=== PATIENT | female | born 1975 | race Caucasian/White ===

== ENCOUNTER 2019-05-10 05:22 | Emergency (ER) | payer SELFPAY ==
[~2019-05-10] VITALS: Ht 167.6 cm; Wt 95.0 kg
[2019-05-10] MEDS ORDERED: ONDANSETRON HCL 4MG/2ML INJ IV STA (05:44)
[2019-05-10] MEDS ORDERED: MORPHINE SULFATE 4 MG/ML CPJ (NOT FOR IM USE) IV STA (05:44)
[2019-05-10] MEDS ORDERED: SODIUM CHLORIDE 0.9% 1,000 ML IV ONE (05:44)
[2019-05-10 06:03] LABS: BASOPHILS % 0.6 % (0.0-2.0); EOSINOPHILS % 0.5 % (0.0-5.0); HEMATOCRIT. 43.8 % (36.0-48.0); HEMOGLOBIN. 14.8 g/dL (12.0-16.0); LYMPHOCYTES % 17.6 % (20.0-50.0); MEAN CORPUSCULAR HEMOGLOBIN 30.8 pg (28.0-32.0); MEAN PLATELET VOLUME 8.2 fl (7.4-10.4); MONOCYTES % 7.1 % (2.0-8.0); NEUTROPHILS % 74.2 % (40.0-76.0); PLATELET 218 x1000/uL (130-400); RED BLOOD CELL COUNT 4.81 mill/uL (4.2-5.4); RED CELL DISTRIBUTION WIDTH 13.7 % (11.6-14.6)
[2019-05-10 06:11] LABS: CHLORIDE 108 mEq/L (98-107)
[2019-05-10 06:17] LABS: ETHANOL BLOOD < 10 mg/dL
[2019-05-10 06:32] LABS: INR 0.9; PROTHROMBIN TIME 9.8 sec (9.6-11.0)
[2019-05-10] MEDS ORDERED: DIATR MEGLU/DIATRIZOATE SOLN 30ML ONE (06:43)
[2019-05-10 07:04] LABS: HCG SCREEN NEGATIVE
[2019-05-10] MEDS ORDERED: LORAZEPAM 1MG TABLET PO ONE (08:15)
[2019-05-10] MEDS ORDERED: LORAZEPAM 2MG/ML CPJ IV ONE (08:45)
[2019-05-10 09:20] VITALS: BP 135/92
== END 2019-05-10 09:22 | disposition home or self-care (01) ==
LOC: ER 05:22
DX: M54.5 Low back pain (principal); R11.2 Nausea with vomiting, unspecified; J45.909 Unspecified asthma, uncomplicated; K21.9 Gastro-esophageal reflux disease without esophagitis; F12.10 Cannabis abuse, uncomplicated; F17.210 Nicotine dependence, cigarettes, uncomplicated; Z98.890 Other specified postprocedural states; Z88.6 Allergy status to analgesic agent
CPT/HCPCS: 36415; 74176; 76830; 76856; 80053; 80320; 83690; 84703; 85025; 85610; 96361; 96374; 96375; 99284; J2060; J2270; J2405; J7030; Z7610; Q9963; G0480

== ENCOUNTER 2022-04-07 07:08 | Emergency (ER) | payer BC ==
[~2022-04-07] VITALS: Ht 170.2 cm; Wt 87.0 kg
[2022-04-07] MEDS ORDERED: ONDANSETRON HCL 4MG/2ML INJ IV STA (07:11)
[2022-04-07] MEDS ORDERED: LORAZEPAM 1MG TABLET PO ONE (07:15)
[2022-04-07] MEDS ORDERED: SODIUM CHLORIDE 0.9% 1,000 ML IV ONE (07:15)
[2022-04-07] MEDS ORDERED: ACETAMINOPHEN 325MG TABLET PO ONE (08:30)
[2022-04-07 08:35] LABS: BASOPHILS % 0.7 % (0.0-2.0); EOSINOPHILS % 0.1 % (0.0-5.0); HEMATOCRIT. 43.2 % (36.0-48.0); HEMOGLOBIN. 14.3 g/dL (12.0-16.0); LYMPHOCYTES % 10.8 % (20.0-50.0); MEAN CORPUSCULAR HEMOGLOBIN 30.9 pg (28.0-32.0); MEAN CORPUSCULAR VOLUME 93.1 fL (81.0-99.0); MEAN PLATELET VOLUME 8.1 fl (7.4-10.4); MONOCYTES % 5.6 % (2.0-8.0); NEUTROPHILS % 82.8 % (40.0-76.0); PLATELET 251 x1000/uL (130-400); RED BLOOD CELL COUNT 4.64 mill/uL (4.2-5.4); RED CELL DISTRIBUTION WIDTH 13.5 % (11.6-14.6)
[2022-04-07 08:42] LABS: CLARITY URINE CLOUDY (CLEAR); COLOR URINE YELLOW (YELLOW); KETONES URINE 1+ (NEGATIVE); LEUKOCYTE ESTERASE URINE NEGATIVE (NEGATIVE); NITRITE URINE NEGATIVE (NEGATIVE); OCCULT BLOOD URINE TRACE (NEGATIVE); PH URINE 6.5 (4.5-8.0); PROTEIN URINE 1+ (NEGATIVE); SPECIFIC GRAVITY URINE 1.035 (1.005-1.030)
[2022-04-07 08:43] LABS: CHLORIDE 108 mEq/L (98-107)
[2022-04-07 08:51] LABS: ETHANOL BLOOD < 10 mg/dL
[2022-04-07 08:58] LABS: HCG SCREEN NEGATIVE
[2022-04-07 09:04] LABS: *AMPHETAMINES SCREEN URINE NEGATIVE (NEGATIVE); *BARBITURATES SCREEN URINE NEGATIVE (NEGATIVE); *BENZODIAZEPINES SCREEN URINE NEGATIVE (NEGATIVE); *COCAINE SCREEN URINE NEGATIVE (NEGATIVE); METHADONE URINE SCREEN NEGATIVE (NEGATIVE); OPIATES URINE SCREEN NEGATIVE (NEGATIVE); PHENCYCLIDINE URINE SCREEN NEGATIVE (NEGATIVE)
[2022-04-07 09:05] LABS: CANNABINOID URINE SCREEN PRESUMTIVE POSITIVE (NEGATIVE)
[2022-04-07] MEDS ORDERED: MAGNESIUM/ALUMINUM HYDROXIDE/SIMETHICONE 30ML UDC PO STA ×2 (09:09→13:04)
[2022-04-07] MEDS ORDERED: VISCOUS LIDOCAINE 2% 15 ML UDC PO STA ×2 (09:09→13:04)
[2022-04-07] MEDS ORDERED: DICYCLOMINE 10 MG/5 ML ORAL SYR PO STA ×2 (09:09→13:04)
[2022-04-07] MEDS ORDERED: OMEP40CA20 MT (10:48)
[2022-04-07] MEDS ORDERED: ONDA4TAB50 MT (10:48)
[2022-04-07] MEDS ORDERED: HALOPERIDOL LACTATE 5MG/ML VIAL IM ONE (13:15)
[2022-04-07 15:50] VITALS: BP 115/59
== END 2022-04-07 16:16 | disposition home or self-care (01) ==
LOC: ER 07:08
DX: R10.9 Unspecified abdominal pain (principal); Z88.6 Allergy status to analgesic agent
CPT/HCPCS: 36415; 74176; 80053; 80305; 80320; 81003; 81025; 83690; 84703; 85025; 96361; 96372; 96374; 99285; J1630; J2405; J7030; G0480

== ENCOUNTER 2023-04-04 10:20 | Emergency (ER) | payer BC ==
[~2023-04-04] VITALS: Ht 167.6 cm; Wt 90.0 kg
[~2023-04-04 10:20] MED LIST: OMEP40CA20 MT; ONDA4TAB50 MT
[2023-04-04 10:22] VITALS: O2SAT 97
[2023-04-04] MEDS ORDERED: MORPHINE SULFATE 4 MG/ML CPJ (NOT FOR IM USE) IV STA (10:32)
[2023-04-04] MEDS ORDERED: ONDANSETRON HCL 4MG/2ML INJ IV STA (10:32)
[2023-04-04] MEDS ORDERED: SODIUM CHLORIDE 0.9% 1,000 ML IV ONE (10:45)
[2023-04-04] MEDS ORDERED: LORAZEPAM 2MG/ML CPJ IV ONE (11:15)
[2023-04-04 12:12] LABS: BASOPHILS % 0.4 % (0.0-2.0); EOSINOPHILS % 0.2 % (0.0-5.0); HEMATOCRIT. 42.7 % (36.0-48.0); HEMOGLOBIN. 14.2 g/dL (12.0-16.0); MEAN CORPUSCULAR HEMOGLOBIN 30.9 pg (28.0-32.0); MEAN CORPUSCULAR HGB CONC 33.3 g/dL (31.0-37.0); MEAN CORPUSCULAR VOLUME 92.5 fL (81.0-99.0); MONOCYTES % 5.2 % (2.0-8.0); NEUTROPHILS % 82.2 % (40.0-76.0); PLATELET 236 x1000/uL (130-400); RED BLOOD CELL COUNT 4.62 mill/uL (4.2-5.4); RED CELL DISTRIBUTION WIDTH 14.1 % (11.6-14.6); WHITE BLOOD COUNT 13.7 x1000/uL (4.5-11.0)
[2023-04-04] MEDS ORDERED: METOCLOPRAMIDE HCL 10MG/2ML VIAL IV ONE (12:15)
[2023-04-04] MEDS ORDERED: MORPHINE SULFATE 4 MG/ML CPJ (NOT FOR IM USE) IV ONE (12:15)
[2023-04-04 12:22] LABS: CHLORIDE 118 mEq/L (98-107); INDEX HEMOLYSI 4 (1-3); INDEX ICTERIC 1 (1-4); INDEX LIPEMIC 1 (1-3); SODIUM 140 mEq/L (136-145)
[2023-04-04 12:27] LABS: POTASSIUM 4.4 mEq/L (3.5-5.1)
[2023-04-04 12:31] LABS: ALANINE AMINOTRANSFERASE 20 IU/L (13-61); ALBUMIN 3.7 g/dL (3.4-5.0); ASPARTATE AMINOTRANSFERASE 27 IU/L (15-37); BILIRUBIN TOTAL 0.6 mg/dL (0.1-1.0); CALCIUM 8.5 mg/dL (8.5-10.1); CARBON DIOXIDE 21 mEq/L (21-32); CREATININE 0.8 mg/dL (0.6-1.3); GLUCOSE 120 mg/dL (70-105); PROTEIN TOTAL 7.6 g/dL (6.0-8.3); TROPONIN I HIGH SENSITIVITY 6 ng/L (<54); UREA NITROGEN BLOOD 13 mg/dL (7-21)
[2023-04-04 12:38] LABS: HCG SCREEN NEGATIVE
[2023-04-04 13:03] LABS: CLARITY URINE TURBID (CLEAR); COLOR URINE ORANGE (YELLOW); GLUCOSE URINE NEGATIVE (NEGATIVE); KETONES URINE 1+ (NEGATIVE); LEUKOCYTE ESTERASE URINE 1+ (NEGATIVE); NITRITE URINE POSITIVE (NEGATIVE); OCCULT BLOOD URINE 3+ (NEGATIVE); PH URINE 5.5 (4.5-8.0); PROTEIN URINE 2+ (NEGATIVE); SPECIFIC GRAVITY URINE 1.024 (1.005-1.030)
[2023-04-04] MEDS ORDERED: CEFTRIAXONE 1GM PREMIX 50 ML IV ONE (13:15)
[2023-04-04 13:43] LABS: BACTERIA URINE 1+; RBC URINE TNTC /hpf (0-2); SQUAMOUS EPITHELIAL CELL URINE 1+ /lpf (RARE/1+); WBC URINE 0-2 /hpf (0-2)
[2023-04-04] MEDS ORDERED: CEPH500C2 MT (19:09)
[2023-04-04 19:30] VITALS: BP 115/92; PULSE 69; RESP 14; TEMP 98.5
== END 2023-04-04 19:15 | disposition home or self-care (01) ==
LOC: ER 10:29
DX: R10.10 Upper abdominal pain, unspecified (principal); R11.2 Nausea with vomiting, unspecified; F41.9 Anxiety disorder, unspecified; F32.9 Major depressive disorder, single episode, unspecified; K21.9 Gastro-esophageal reflux disease without esophagitis
CPT/HCPCS: 80053; 81003; 84703; 83690; 85025; 84484; 36415; 71045; 74176; 93005; 96361; 96365; 96375; 96376; 99285; J0696; J2060; J2765; J2405; J2270; J7030; Z7610 ×2

== ENCOUNTER 2024-04-11 14:19 | Emergency (ER) | payer BC ==
[~2024-04-11] VITALS: Ht 165.1 cm; Wt 105.0 kg
[~2024-04-11 14:19] MED LIST changes: +CEPH500C2 MT
[2024-04-11 14:22] VITALS: O2SAT 100
[2024-04-11] MEDS: MAGNESIUM/ALUMINUM HYDROXIDE/SIMETHICONE 30ML UDC PO STA (15:14)
[2024-04-11] MEDS: FAMOTIDINE 20MG TABLET PO ONE ×2 (15:14→21:54)
[2024-04-11] MEDS: HYDROCODONE/ACETAMINOPHEN 5/325MG TABLET PO STA (15:17)
[2024-04-11 15:34] LABS: BASOPHILS % 1.3 % (0.0-2.0); EOSINOPHILS % 0.4 % (0.0-5.0); HEMOGLOBIN. 15.2 g/dL (12.0-16.0); LYMPHOCYTES % 21.7 % (20.0-50.0); MEAN CORPUSCULAR HEMOGLOBIN 32.3 pg (28.0-32.0); MEAN CORPUSCULAR HGB CONC 33.7 g/dL (31.0-37.0); MEAN CORPUSCULAR VOLUME 95.7 fL (81.0-99.0); MEAN PLATELET VOLUME 8.1 fl (7.4-10.4); MONOCYTES % 5.6 % (2.0-8.0); PLATELET 299 x1000/uL (130-400); RED CELL DISTRIBUTION WIDTH 14.5 % (11.6-14.6); WHITE BLOOD COUNT 14.8 x1000/uL (4.5-11.0)
[2024-04-11 15:35] LABS: CHLORIDE 108 mEq/L (98-107); POTASSIUM 3.6 mEq/L (3.5-5.1); SODIUM 144 mEq/L (136-145)
[2024-04-11 15:36] LABS: CALCIUM 10.5 mg/dL (8.7-10.4); CARBON DIOXIDE 25 mEq/L (21-32)
[2024-04-11 15:39] LABS: PROTHROMBIN TIME 10.7 sec (9.6-11.0)
[2024-04-11 15:41] LABS: GLUCOSE 118 mg/dL (70-105); UREA NITROGEN BLOOD 11 mg/dL (9-23)
[2024-04-11 15:42] LABS: HCG SCREEN NEGATIVE
[2024-04-11 15:43] LABS: ALANINE AMINOTRANSFERASE 17 IU/L (10-49); ASPARTATE AMINOTRANSFERASE 21 IU/L (<34); BILIRUBIN DIRECT 0.2 mg/dL (<=3.0)
[2024-04-11 15:44] LABS: BILIRUBIN TOTAL 0.5 mg/dL (0.1-1.0); PROTEIN TOTAL 7.6 g/dL (6.0-8.3)
[2024-04-11] MEDS: LORAZEPAM 2MG/ML INJ IV ONE (15:45)
[2024-04-11 15:52] LABS: ETHANOL BLOOD < 10 mg/dL (<10); TROPONIN I HIGH SENSITIVITY < 4 ng/L (3.0-34)
[2024-04-11 17:21] VITALS: TEMP 37.00296
[2024-04-11] MEDS: MORPHINE SULFATE 2 MG/ML INJ (NOT FOR IM USE) IV NR (17:45)
[2024-04-11 18:21] LABS: TROPONIN I HIGH SENSITIVITY < 4 ng/L (3.0-34)
[2024-04-11 19:46] VITALS: BP 145/61; PULSE 78; RESP 20; O2SAT 98
[2024-04-11] MEDS ORDERED: SUCR1TAB MT (20:41)
[2024-04-11] MEDS: ONDANSETRON 4MG ODT PO ONE (21:19)
[2024-04-11] MEDS: MAGNESIUM/ALUMINUM HYDROXIDE/SIMETHICONE 30ML UDC PO ONE (21:54)
[2024-04-11] MEDS: ACETAMINOPHEN 1000MG/100ML 100 ML IV ONE (22:02)
[2024-04-11] MEDS: ONDANSETRON HCL 4MG/2ML INJ IV ONE (22:02)
== END 2024-04-11 23:52 | disposition left against medical advice (07) ==
LOC: ER 14:19 → EDBEDREQ 14:59 → EDBEDREQTM 22:03 → EDBEDREQ 22:03 → EDBEDREQSVC 22:03 → EDBEDREQTM 22:04 → CANBEDREQ 23:28 → ER 23:52
DX: K21.9 Gastro-esophageal reflux disease without esophagitis (principal); F41.9 Anxiety disorder, unspecified; J45.909 Unspecified asthma, uncomplicated; Z88.8 Allergy status to other drugs, medicaments and biological substances; Z79.899 Other long term (current) drug therapy
CPT/HCPCS: 80076; 80048; 80320; 84703; 83880; 83690; 85025; 85610; 84484; 36415; 71045; 74176; 93005; 96365; 96375; 99285; Q0162; J2060; J2405; J2270; Z7610 ×5; G0480; J0131

== ENCOUNTER 2024-04-25 16:58 | Emergency (ER) | payer BC ==
[~2024-04-25] VITALS: Ht 167.6 cm; Wt 91.0 kg
[~2024-04-25 16:58] MED LIST changes: +SUCR1TAB MT
[2024-04-25 17:01] VITALS: O2SAT 95
[2024-04-25] MEDS: ONDANSETRON HCL 4MG/2ML INJ IV STA (17:03)
[2024-04-25] MEDS: LORAZEPAM 2MG/ML INJ IV ONE (18:07)
[2024-04-25] MEDS: FAMOTIDINE 20MG/2ML VIAL IV STA (18:07)
[2024-04-25] MEDS: SODIUM CHLORIDE 0.9% 1,000 ML IV ONE (18:07)
[2024-04-25] MEDS: MORPHINE SULFATE 4 MG/ML INJ (FOR IV/IM USE) IV ONE (18:12)
[2024-04-25 18:59] LABS: BASOPHILS % 0.5 % (0.0-2.0); EOSINOPHILS % 0.1 % (0.0-5.0); HEMATOCRIT. 41.3 % (36.0-48.0); HEMOGLOBIN. 14.4 g/dL (12.0-16.0); MEAN CORPUSCULAR HEMOGLOBIN 33.2 pg (28.0-32.0); MEAN CORPUSCULAR VOLUME 94.8 fL (81.0-99.0); MEAN PLATELET VOLUME 7.7 fl (7.4-10.4); MONOCYTES % 4.3 % (2.0-8.0); NEUTROPHILS % 84.1 % (40.0-76.0); PLATELET 258 x1000/uL (130-400); RED BLOOD CELL COUNT 4.35 mill/uL (4.2-5.4); RED CELL DISTRIBUTION WIDTH 13.9 % (11.6-14.6); WHITE BLOOD COUNT 15.5 x1000/uL (4.5-11.0)
[2024-04-25 19:08] LABS: CHLORIDE 111 mEq/L (98-107); POTASSIUM 3.9 mEq/L (3.5-5.1); SODIUM 142 mEq/L (136-145)
[2024-04-25 19:09] LABS: CARBON DIOXIDE 21 mEq/L (21-32)
[2024-04-25 19:14] LABS: CREATININE 0.9 mg/dL (0.6-1.0); GLUCOSE 135 mg/dL (70-105); UREA NITROGEN BLOOD 11 mg/dL (9-23)
[2024-04-25 19:16] LABS: ALANINE AMINOTRANSFERASE 17 IU/L (10-49); ALBUMIN 4.8 g/dL (3.2-4.8); ASPARTATE AMINOTRANSFERASE 17 IU/L (<34); BILIRUBIN DIRECT 0.2 mg/dL (<=3.0); BILIRUBIN TOTAL 0.7 mg/dL (0.1-1.0); PROTEIN TOTAL 7.2 g/dL (6.0-8.3)
[2024-04-25] MEDS: LORAZEPAM 1MG TABLET PO ONE (19:19)
[2024-04-25 19:30] LABS: HCG SCREEN NEGATIVE
[2024-04-25] MEDS: MAGNESIUM/ALUMINUM HYDROXIDE/SIMETHICONE 30ML UDC PO ONE (19:33)
[2024-04-25 19:51] LABS: INR 0.9; PROTHROMBIN TIME 10.6 sec (9.6-11.0)
[2024-04-25] MEDS: LABETALOL 5MG/ML 4ML INJ IV ONE (20:54)
[2024-04-25] MEDS ORDERED: DEXTROSE 50% WATER 50ML SYRINGE IV PRN ×2 (21:30)
[2024-04-25] MEDS ORDERED: ACETAMINOPHEN 325MG TABLET PO PRN (21:30)
[2024-04-25] MEDS ORDERED: ONDANSETRON HCL 4MG/2ML INJ IV PRN (21:30)
[2024-04-25] MEDS ORDERED: DOCUSATE SODIUM 100MG CAPSULE PO PRN (21:30)
[2024-04-25] MEDS ORDERED: MAGNESIUM/ALUMINUM HYDROXIDE/SIMETHICONE 30ML UDC PO PRN (21:30)
[2024-04-25] MEDS ORDERED: CLONIDINE 0.1MG TABLET PO PRN (21:30)
[2024-04-25 22:00] VITALS: TEMP 36.94740; O2SAT 97
[2024-04-25] MEDS ORDERED: NALOXONE HCL 0.4MG/ML VIAL IV PRN (22:00)
[2024-04-25 22:03] VITALS: BP 111/63; PULSE 71; RESP 16
[2024-04-25] MEDS: HYDROCODONE/ACETAMINOPHEN 5/325MG TABLET PO PRN (22:03)
[2024-04-26] MEDS ORDERED: IOHEXOL-300 100 ML BOTTLE ONE (00:37)
[2024-04-26] MEDS ORDERED: PANTOPRAZOLE 40MG DR TABLET PO SCH (07:50)
[2024-04-26] MEDS ORDERED: INSULIN LISPRO 100 UNITS/ML SUBCUT SCH (08:20)
[2024-04-26] MEDS ORDERED: BLOOD SUGAR DIAGNOSTIC STRIP TEST SCH (09:00)
== END 2024-04-25 23:00 | disposition left against medical advice (07) ==
LOC: ER 16:58 → EDBEDREQ 20:37 → EDBEDREQTM 20:37 → ER 23:00
DX: R10.84 Generalized abdominal pain (principal); F41.9 Anxiety disorder, unspecified; J45.909 Unspecified asthma, uncomplicated; K21.9 Gastro-esophageal reflux disease without esophagitis; Z79.899 Other long term (current) drug therapy; Z88.8 Allergy status to other drugs, medicaments and biological substances
CPT/HCPCS: 80076; 80048; 83036; 84703; 83690; 85025; 85610; 36415; 71045; 74177; 96361; 96374; 96375; 99285; Q9967; J3490; J2060; J2405; J2270; J7030; Z7610 ×3

== ENCOUNTER 2024-07-26 06:54 | Emergency (ER) | payer BC ==
[~2024-07-26] VITALS: Ht 165.1 cm; Wt 90.0 kg
[2024-07-26 07:14] VITALS: O2SAT 99
[2024-07-26] MEDS: MAGNESIUM/ALUMINUM HYDROXIDE/SIMETHICONE 30ML UDC PO ONE (08:00)
[2024-07-26 09:06] LABS: HEMATOCRIT 47.4 % (36.0-48.0); HEMOGLOBIN 16.1 g/dL (12.0-16.0); MEAN CORPUSCULAR HEMOGLOBIN 31.8 pg (28.0-32.0); MEAN CORPUSCULAR HGB CONC 33.9 g/dL (31.0-37.0); MEAN CORPUSCULAR VOLUME 93.6 fL (81.0-99.0); PLATELET 260 x1000/uL (130-400); RED BLOOD CELL COUNT 5.06 mill/uL (4.2-5.4); RED CELL DISTRIBUTION WIDTH 13.6 % (11.6-14.6); WHITE BLOOD COUNT 12.6 x1000/uL (4.5-11.0)
[2024-07-26 09:12] LABS: CARBON DIOXIDE 26 mEq/L (21-32); CHLORIDE 107 mEq/L (98-107); POTASSIUM 3.6 mEq/L (3.5-5.1); SODIUM 145 mEq/L (136-145)
[2024-07-26 09:13] LABS: CALCIUM 10.2 mg/dL (8.7-10.4)
[2024-07-26 09:17] LABS: CREATININE 0.9 mg/dL (0.6-1.0); GLUCOSE 125 mg/dL (70-105)
[2024-07-26 09:18] LABS: UREA NITROGEN BLOOD 14 mg/dL (9-23)
[2024-07-26] MEDS: FAMOTIDINE 20MG TABLET PO ONE (09:18)
[2024-07-26 09:19] LABS: ALANINE AMINOTRANSFERASE 19 IU/L (10-49); ASPARTATE AMINOTRANSFERASE 20 IU/L (<34)
[2024-07-26] MEDS: ONDANSETRON 4MG ODT PO ONE (09:19)
[2024-07-26 09:20] LABS: BILIRUBIN DIRECT 0.2 mg/dL (<=3.0); BILIRUBIN TOTAL 0.6 mg/dL (0.1-1.0)
[2024-07-26 09:35] LABS: TROPONIN I HIGH SENSITIVITY < 4 ng/L (3.0-34)
[2024-07-26] MEDS: CLONAZEPAM 1MG TABLET PO SCH (09:40)
[2024-07-26] MEDS: SODIUM CHLORIDE 0.9% 1,000 ML IV ONE (09:43)
[2024-07-26] MEDS: ACETAMINOPHEN 1000MG/100ML 100 ML IV SCH (09:55)
[2024-07-26 10:19] LABS: HCG SCREEN NEGATIVE
[2024-07-26] MEDS: KETOROLAC 30MG/ML VIAL IV ONE (11:03)
[2024-07-26] MEDS ORDERED: OMEP40CA20 MT (11:48)
[2024-07-26] MEDS ORDERED: MAG-55 MT (11:48)
[2024-07-26 12:05] VITALS: BP 120/79; PULSE 80; RESP 14; TEMP 37.00296; O2SAT 96
== END 2024-07-26 12:29 | disposition home or self-care (01) ==
LOC: ER 06:54
DX: K29.70 Gastritis, unspecified, without bleeding (principal); F41.9 Anxiety disorder, unspecified; J45.909 Unspecified asthma, uncomplicated; K21.9 Gastro-esophageal reflux disease without esophagitis; Z79.899 Other long term (current) drug therapy; Z88.8 Allergy status to other drugs, medicaments and biological substances
CPT/HCPCS: 80076; 80048; 84703; 83690; 85027; 84484; 36415; 96365; 96375; 99284; Q0162; J1885; J7030; Z7610 ×2; J0131

== ENCOUNTER 2024-08-13 09:41 | Emergency (ER) | payer BC ==
[~2024-08-13] VITALS: Ht 165.1 cm; Wt 96.0 kg
[~2024-08-13 09:41] MED LIST changes: +MAG-55 MT
[2024-08-13 09:46] VITALS: O2SAT 99
[2024-08-13 09:59] VITALS: BP 147/73; PULSE 80; RESP 16; TEMP 98.1; O2SAT 99
[2024-08-13] MEDS: LIDOCAINE HCL 1% 20ML VIAL INFIL ONE (10:36)
== END 2024-08-13 11:10 | disposition home or self-care (01) ==
LOC: ER 09:41
DX: S61.217D Laceration without foreign body of left little finger without damage to nail, subsequent encounter (principal); J45.909 Unspecified asthma, uncomplicated; K21.9 Gastro-esophageal reflux disease without esophagitis; Z79.899 Other long term (current) drug therapy; W26.0XXD Contact with knife, subsequent encounter
CPT/HCPCS: 99281; J3490

== ENCOUNTER 2024-11-09 03:37 | Emergency (ER) | payer BC ==
[~2024-11-09] VITALS: Ht 167.6 cm; Wt 109.0 kg
[2024-11-09 03:39] VITALS: TEMP 37.1; O2SAT 97
[2024-11-09] MEDS ORDERED: LORAZEPAM 2MG/ML INJ IV ONE (04:15)
[2024-11-09] MEDS: MORPHINE SULFATE 4 MG/ML INJ (FOR IV/IM USE) IV ONE (04:23)
[2024-11-09] MEDS: ONDANSETRON HCL 4MG/2ML INJ IV STA (04:23)
[2024-11-09] MEDS: DICYCLOMINE 10 MG/5 ML ORAL SYR PO STA (04:24)
[2024-11-09] MEDS: ONDANSETRON 4MG ODT PO STA (04:24)
[2024-11-09] MEDS: MAGNESIUM/ALUMINUM HYDROXIDE/SIMETHICONE 30ML UDC PO STA (04:24)
[2024-11-09] MEDS: LORAZEPAM 2MG/ML UD SYRINGE IV NR (04:33)
[2024-11-09 04:41] LABS: BASOPHILS % 0.9 % (0.0-2.0); EOSINOPHILS % 0.2 % (0.0-5.0); HEMATOCRIT. 47.6 % (36.0-48.0); HEMOGLOBIN. 15.9 g/dL (12.0-16.0); LYMPHOCYTES % 22.6 % (20.0-50.0); MEAN CORPUSCULAR HEMOGLOBIN 31.6 pg (28.0-32.0); MEAN CORPUSCULAR HGB CONC 33.4 g/dL (31.0-37.0); MEAN CORPUSCULAR VOLUME 94.8 fL (81.0-99.0); MEAN PLATELET VOLUME 7.6 fl (7.4-10.4); NEUTROPHILS % 70.3 % (40.0-76.0); PLATELET 267 x1000/uL (130-400); RED BLOOD CELL COUNT 5.02 mill/uL (4.2-5.4)
[2024-11-09] MEDS: DIPHENHYDRAMINE 50MG/ML VIAL IV ONE (04:46)
[2024-11-09] MEDS: HALOPERIDOL LACTATE 5MG/ML VIAL IM ONE (04:46)
[2024-11-09 04:57] LABS: CHLORIDE 108 mEq/L (98-107); POTASSIUM 4.1 mEq/L (3.5-5.1); SODIUM 142 mEq/L (136-145)
[2024-11-09 04:58] LABS: CALCIUM 10.3 mg/dL (8.7-10.4); CARBON DIOXIDE 21 mEq/L (21-32)
[2024-11-09 05:03] LABS: GLUCOSE 132 mg/dL (70-105); UREA NITROGEN BLOOD 12 mg/dL (9-23)
[2024-11-09 05:04] LABS: ETHANOL BLOOD < 10 mg/dL (<10)
[2024-11-09 05:05] LABS: ALANINE AMINOTRANSFERASE 15 IU/L (10-49); ALBUMIN 4.6 g/dL (3.2-4.8); ASPARTATE AMINOTRANSFERASE 19 IU/L (<34); BILIRUBIN DIRECT 0.1 mg/dL (<=3.0)
[2024-11-09 05:06] LABS: BILIRUBIN TOTAL 0.5 mg/dL (0.1-1.0); PROTEIN TOTAL 7.7 g/dL (6.0-8.3)
[2024-11-09 05:08] VITALS: TEMP 98.7
[2024-11-09 05:21] LABS: HCG SCREEN NEGATIVE
[2024-11-09] MEDS ORDERED: FAMO-135 MT (05:54)
[2024-11-09 06:07] VITALS: BP 122/103; PULSE 87; RESP 18; O2SAT 96
== END 2024-11-09 06:12 | disposition home or self-care (01) ==
LOC: ER 03:37
DX: K76.0 Fatty (change of) liver, not elsewhere classified (principal); K29.70 Gastritis, unspecified, without bleeding; F32.A Depression, unspecified; F41.9 Anxiety disorder, unspecified; J45.909 Unspecified asthma, uncomplicated; Z79.899 Other long term (current) drug therapy; Z88.6 Allergy status to analgesic agent; Z98.890 Other specified postprocedural states
CPT/HCPCS: 80076; 80048; 80320; 84703; 83690; 85025; 36415; 76700; 96372; 96374; 96375; 99285; Q0162; J1200; J1630; J2060; J2405; J2270; Z7610 ×2; G0480

== ENCOUNTER 2025-05-16 10:59 | Emergency (ER) | payer BC ==
[~2025-05-16] VITALS: Ht 167.6 cm; Wt 100.0 kg
[~2025-05-16 10:59] MED LIST changes: +BUSP30TA2 PO; +CYCL10TA21 PO; +FAMO-135 MT; +LURA80TA4 PO; +QUET50TA23 PO
[2025-05-16 11:02] VITALS: O2SAT 97
[2025-05-16] MEDS: ONDANSETRON HCL 4MG/2ML INJ IV ONE (11:46)
[2025-05-16] MEDS: MORPHINE SULFATE 4 MG/ML INJ (FOR IV/IM USE) IV ONE ×2 (11:46→12:34)
[2025-05-16] MEDS: FAMOTIDINE 20MG TABLET PO ONE (11:46)
[2025-05-16] MEDS: MAGNESIUM/ALUMINUM HYDROXIDE/SIMETHICONE 30ML UDC PO ONE (11:46)
[2025-05-16] MEDS: VISCOUS LIDOCAINE 2% 15 ML UDC MM ONE (12:28)
[2025-05-16] MEDS: SODIUM CHLORIDE 0.9% 1,000 ML IV ONE (12:33)
[2025-05-16] MEDS ORDERED: GUAIFENESIN 200MG/10ML SUGAR FREE UDC PO PRN (13:30)
[2025-05-16] MEDS ORDERED: DOCUSATE SODIUM 100MG CAPSULE PO PRN (13:30)
[2025-05-16] MEDS ORDERED: ACETAMINOPHEN 325MG TABLET PO PRN ×2 (13:30)
[2025-05-16] MEDS ORDERED: CLONIDINE 0.1MG TABLET PO PRN (13:30)
[2025-05-16] MEDS ORDERED: IPRATROPIUM/ALBUTEROL 0.5-3(2.5)MG/3ML NEB HHN PRN (13:30)
[2025-05-16] MEDS ORDERED: ONDANSETRON HCL 4MG/2ML INJ IV PRN (13:30)
[2025-05-16] MEDS ORDERED: LORAZEPAM 0.5MG TABLET PO PRN (13:45)
[2025-05-16] MEDS ORDERED: LORAZEPAM 2MG/ML UD SYRINGE IV PRN (13:45)
[2025-05-16] MEDS: HALOPERIDOL LACTATE 5MG/ML VIAL IM NR (13:58)
[2025-05-16] MEDS ORDERED: QUET50TA23 PO (14:33)
[2025-05-16] MEDS ORDERED: CLON0.5T4 PO (14:34)
[2025-05-16] MEDS ORDERED: LURA80TA4 PO (14:34)
[2025-05-16] MEDS: QUETIAPINE FUMARATE 50MG TABLET PO SCH (14:36)
[2025-05-16] MEDS: BUSPIRONE HCL 10MG TABLET PO SCH (14:36)
[2025-05-16 14:37] VITALS: BP 148/73; PULSE 94; RESP 18; TEMP 37.1; O2SAT 99
[2025-05-16] MEDS ORDERED: SUCRALFATE 1G TABLET PO SCH (17:00)
[2025-05-16 17:37] LABS: BASOPHILS % 0.4 % (0.0-2.0); EOSINOPHILS % 0.0 % (0.0-5.0); HEMATOCRIT. 42.7 % (36.0-48.0); HEMOGLOBIN. 14.3 g/dL (12.0-16.0); LYMPHOCYTES % 10.9 % (20.0-50.0); MEAN PLATELET VOLUME 8.1 fl (7.4-10.4); MONOCYTES % 3.9 % (2.0-8.0); NEUTROPHILS % 84.8 % (40.0-76.0); PLATELET 205 x1000/uL (130-400); RED BLOOD CELL COUNT 4.59 mill/uL (4.2-5.4); RED CELL DISTRIBUTION WIDTH 13.6 % (11.6-14.6)
[2025-05-16 17:49] LABS: HCG SCREEN NEGATIVE
[2025-05-16 17:54] LABS: CREATININE 0.9 mg/dL (0.6-1.0); TROPONIN I HIGH SENSITIVITY 4 ng/L (3.0-34); UREA NITROGEN BLOOD 11 mg/dL (9-23)
[2025-05-16 17:56] LABS: ASPARTATE AMINOTRANSFERASE 17 IU/L (<34); BILIRUBIN DIRECT 0.2 mg/dL (<=3.0); BILIRUBIN TOTAL 0.6 mg/dL (0.1-1.0); PROTEIN TOTAL 7.1 g/dL (6.0-8.3)
[2025-05-16] MEDS ORDERED: ENOXAPARIN 40MG/0.4ML SYR SUBCUT SCH (18:30)
[2025-05-17] MEDS ORDERED: PANTOPRAZOLE SODIUM 40 MG/VIAL IV SCH (09:00)
== END 2025-05-16 18:11 | disposition left against medical advice (07) ==
LOC: ER 11:21 → EDBEDREQ 12:59 → EDBEDREQTM 12:59 → CANBEDREQ 17:56 → ER 18:11
DX: K29.70 Gastritis, unspecified, without bleeding (principal); F41.9 Anxiety disorder, unspecified; J45.909 Unspecified asthma, uncomplicated; F31.9 Bipolar disorder, unspecified; K21.9 Gastro-esophageal reflux disease without esophagitis; Z98.890 Other specified postprocedural states; Z79.899 Other long term (current) drug therapy; Z53.29 Procedure and treatment not carried out because of patient's decision for other reasons
CPT/HCPCS: 80076; 80048; 80320; 84703; 83690; 85025; 84484; 36415; 93005; 96361; 96372; 96374; 96375; 99285; Z7610 ×2; J1630; J2405; J2270; J7030; A4606; G0480